=== PATIENT | female | born 1950 ===

== ENCOUNTER 2020-10-31 10:21 | Outpatient (CLI) | payer OTHER | END 2020-10-31 12:47 | disposition home or self-care (01) | LOC: OFIC 805 10:21 | PROVIDERS: ATTEND Otolaryngology Otology & Neurotology | DX: H90.3 Sensorineural hearing loss, bilateral (principal) ==

== ENCOUNTER 2020-11-28 10:02 | Outpatient (CLI) | payer OTHER | END 2020-11-28 12:37 | disposition home or self-care (01) | LOC: OFIC 805 10:02 | PROVIDERS: ATTEND Otolaryngology Otology & Neurotology | DX: H90.3 Sensorineural hearing loss, bilateral (principal) ==